=== PATIENT | male | born 1990 | race Caucasian/White ===

== ENCOUNTER 2019-07-30 20:57 | Emergency (ER) | payer OTHER ==
[~2019-07-30] VITALS: Ht 175.3 cm; Wt 68.0 kg
[2019-07-30] MEDS ORDERED: TIZANIDINE HCL 22 M1 PO (22:42)
[2019-07-30] MEDS ORDERED: VOLTAREN GEL 1100 G1 TOP (22:42)
[2019-07-30 23:08] VITALS: BP 124/73
== END 2019-07-30 23:05 | disposition home or self-care (01) ==
LOC: ER 20:57
DX: S33.5XXA Sprain of ligaments of lumbar spine, initial encounter (principal); F17.210 Nicotine dependence, cigarettes, uncomplicated; X50.0XXA Overexertion from strenuous movement or load, initial encounter; Y93.89 Activity, other specified; Y92.89 Other specified places as the place of occurrence of the external cause; Y99.8 Other external cause status

== ENCOUNTER 2020-02-27 10:46 | Emergency (ER) | payer OTHER ==
[~2020-02-27] VITALS: Ht 175.3 cm; Wt 68.0 kg
[~2020-02-27 10:46] MED LIST: ASPERCREME1 EACH TOP; FLEXERIL PO; MOBIC7.5 MG PO; TIMOLOL MALEATE5 M2 INTRAOCULR; TIZANIDINE HCL 22 M1 PO; VOLTAREN GEL 1100 G1 TOP
[2020-02-27 10:47] VITALS: BP 112/77
[2020-02-27] MEDS ORDERED: PREDNISONE 20 M20 MG PO (11:45)
[2020-02-27] MEDS ORDERED: TIZANIDINE4 MG/1 TA1 PO (11:45)
== END 2020-02-27 12:00 | disposition home or self-care (01) ==
LOC: ER 10:46
DX: S39.012A Strain of muscle, fascia and tendon of lower back, initial encounter (principal); G89.29 Other chronic pain; F17.210 Nicotine dependence, cigarettes, uncomplicated; Z79.899 Other long term (current) drug therapy; X58.XXXA Exposure to other specified factors, initial encounter; Y93.89 Activity, other specified; Y92.89 Other specified places as the place of occurrence of the external cause; Y99.8 Other external cause status